=== PATIENT | female | born 1990 | race Hispanic/Latino ===

== ENCOUNTER → 2023-04-05 08:56 | Outpatient (REF) | payer OTHER, SELFPAY ==
[2023-04-05 09:53] LABS: Vitamin D, 25-OH*** 36.1 ng/mL (30-80)
[2023-04-05 13:35] LABS: Glycohemoglobin (HgbA1c) 5.7 % (4.0-5.6)
== END ==
LOC: REG 08:56
PROVIDERS: ATTENDING PHYSICIAN Nurse Practitioner Adult Health
DX: R73.03 Prediabetes (principal); E55.9 Vitamin D deficiency, unspecified
CPT/HCPCS: 36415; 82306; 83036

== ENCOUNTER → 2024-01-01 07:45 | Outpatient (REF) | payer OTHER, SELFPAY ==
[2024-01-01 08:34] LABS: Hematocrit 36.8 % (37.0-47.0); Hemoglobin 12.8 g/dL (12.0-16.0); Mean Corp Hgb Conc. 34.8 g/dL (33.0-37.0); Mean Corpuscular Hgb 31.8 pg (27.0-31.0); Mean Corpuscular Volume 91.3 fL (81.0-99.0); Mean Platelet Volume 9.9 fL (7.4-10.4); Platelet Count 326 10^3/uL (130-400); Red Blood Cell Count 4.03 10^6/uL (4.20-5.40); Red Cell Dist. Width 12.9 % (11.5-14.5); White Blood Cell Count 9.6 10^3/uL (4.8-10.8)
[2024-01-01 09:21] LABS: ALT (SGPT) 22 U/L (0-35); Alkaline Phosphatase 79 U/L (38-126); Calcium 9.2 mg/dl (8.4-10.2); Chloride 101 mmol/L (98-107); Potassium 4.6 mmol/L (3.5-5.1); Sodium 141 mmol/L (135-145)
[2024-01-01 09:31] LABS: AST (SGOT) 20 U/L (14-36); Albumin 4.6 g/dl (3.5-5.0); Blood Urea Nitrogen 14 mg/dl (7-17); Carbon Dioxide 26 mmol/L (22-30); Glucose 98 mg/dl (70-99); Total Bilirubin 0.2 mg/dl (0.2-1.3); Total Protein 7.5 g/dl (6.3-8.2); eGFR > 60.00
[2024-01-01 11:43] LABS: Glycohemoglobin (HgbA1c) 5.5 % (4.0-5.6)
== END ==
LOC: REG 07:45
PROVIDERS: ATTENDING PHYSICIAN Nurse Practitioner Adult Health
DX: R73.03 Prediabetes (principal)
CPT/HCPCS: 36415; 80053; 83036; 85027